=== PATIENT | male | born 1940 | race Caucasian/White ===

== ENCOUNTER 2017-11-15 11:17 | Inpatient (IN) | payer MEDICARE, OTHER ==
[~2017-11-15] VITALS: Ht 165.1 cm; Wt 88.6 kg
[~2017-11-15 11:17] MED LIST: FLO0.4C PO; LISI-643 PO; OMEG1CAP54 PO; RIVA20TA PO; SITA1TAB10 PO
[2017-11-15 12:06] LABS: BASOPHILS % (AUTO) 0.3 % (0-1); EOSINOPHILS # (AUTO) 0.2 X10'3 (0-0.9); EOSINOPHILS % (AUTO) 1.7 % (0-6); HEMATOCRIT 38.5 % (42.0-52.0); HEMOGLOBIN 12.7 g/dl (14.0-17.9); LYMPHOCYTES # (AUTO) 1.7 X10'3 (1.1-4.8); LYMPHOCYTES % (AUTO) 16.6 % (21-51); MEAN CORPUSCULAR HEMOGLOBIN 30.7 PG (27.0-31.0); MEAN CORPUSCULAR VOLUME 93.1 FL (78-98); MONOCYTES # (AUTO) 0.6 X10'3 (0-0.9); MONOCYTES % (AUTO) 6.1 % (2-12); NEUTROPHILS # (AUTO) 7.6 X10'3 (1.8-7.7); NEUTROPHILS % (AUTO) 75.3 % (42-75); PLATELET COUNT 195 X10'3 (140-440); RED BLOOD COUNT 4.14 X10'6 (4.70-6.10); RED CELL DISTRIBUTION WIDTH 14.8 % (11.5-14.5); WHITE BLOOD COUNT 10.1 X10'3 (4.5-11.0)
[2017-11-15 12:15] LABS: INR 1.1 INR; PARTIAL THROMBOPLASTIN TIME 23 SECONDS (22-32)
[2017-11-15 12:23] LABS: ALANINE AMINOTRANSFERASE 38 U/L (12-78); ALBUMIN 3.8 G/DL (3.4-5.0); ALBUMIN/GLOBULIN RATIO 1.1 (1.1-1.5); ALKALINE PHOSPHATASE 40 IU/L (46-116); ANION GAP 11 (8-16); ASPARTATE AMINO TRANSFERASE 28 U/L (10-37); BILIRUBIN,TOTAL 0.5 MG/DL (0.1-1.0); BLOOD UREA NITROGEN 33 MG/DL (7-18); BUN/CREATININE RATIO 20.2 (5.4-32.0); CALCIUM 9.9 MG/DL (8.5-10.1); CHLORIDE 104 MMOL/L (99-107); CREATININE 1.63 MG/DL (0.60-1.10); GLUCOSE 159 MG/DL (70-104); POTASSIUM 4.3 MMOL/L (3.5-5.1); SODIUM 138 MMOL/L (135-145); TOTAL CARBON DIOXIDE 23.5 MMOL/L (24-32); TOTAL PROTEIN 7.2 G/DL (6.4-8.2); eGFR 41 ML/MIN
[2017-11-15 14:02] LABS: CLARITY,URINE CLEAR (Clear); COLOR,URINE YELLOW (Yellow); GLUCOSE, URINE NEGATIVE (Neg); KETONES,URINE NEGATIVE (Neg); LEUKOCYTE ESTERASE ,URINE NEGATIVE (Neg); NITRITES, URINE NEGATIVE (Neg); OCCULT BLOOD,URINE TRACE-INTACT (Neg); PH,URINE 5.5 (4.8-8.0); PROTEIN,URINE 100 mg/dl (Neg); UA COLLECTION TYPE URINAL; UROBILINOGEN,URINE 0.2 E.U/dL (0.2-1.0)
[2017-11-15 14:12] LABS: BACTERIA,URINE FEW /HPF (Neg); MUCUS STRANDS FEW /LPF (Neg); RBC,URINE 0-2 /HPF (0-2); SQUAMOUS EPITHELIAL CELL,UR FEW /LPF (FEW); WBC,URINE 0-4 /HPF (0-4)
[2017-11-15] MEDS ORDERED: glucagon, human recombinant 1mg kit SUBCUT PRN (15:10)
[2017-11-15] MEDS ORDERED: dextrose ORAL solution 15 GM/59 ML bottle PO PRN ×2 (15:10)
[2017-11-15] MEDS ORDERED: insulin Lispro (HumaLOG) vial - multi-dose SQ SCH (15:10)
[2017-11-15] MEDS ORDERED: potassium Cl 20 mEq SR tablet PO PRN ×2 (15:10)
[2017-11-15] MEDS ORDERED: dextrose 50%-water 50ml dispensing syringe IV PRN ×2 (15:10)
[2017-11-15] MEDS ORDERED: magnesium 4gm in 100ml NS 100 ML IV PRN (15:10)
[2017-11-15] MEDS ORDERED: potassium Cl 40MEQ/NS 500ml 500 ML IV PRN ×2 (15:10)
[2017-11-15] MEDS ORDERED: magnesium 1gm/100ml D5W IVPB 100 ML IV PRN (15:10)
[2017-11-15] MEDS ORDERED: magnesium Cl slow-release 64mg tablet PO PRN (15:10)
[2017-11-15] MEDS ORDERED: MESSAGE TO PHARMACY PO ONE (15:10)
[2017-11-15] MEDS ORDERED: ATOR10TA70 PO (15:45)
[2017-11-15] MEDS ORDERED: DONE-46 PO (15:45)
[2017-11-15] MEDS ORDERED: LISI-604 PO (15:45)
[2017-11-15] MEDS ORDERED: ALLO300T8 PO (15:45)
[2017-11-15] MEDS ORDERED: LATA2.5D2 OP (15:45)
[2017-11-15] MEDS ORDERED: SITA1TAB6 PO (15:45)
[2017-11-15] MEDS ORDERED: FENO134C PO (15:45)
[2017-11-15] MEDS ORDERED: TAMS0.4C32 PO (15:45)
[2017-11-15 15:48] LABS: HEMOGLOBIN A1C 6.9 % (4.5-6.2)
[2017-11-15] MEDS ORDERED: metFORMIN 500mg tablet PO SCH (17:30)
[2017-11-15 17:44] VITALS: BP 146/70
[2017-11-15 20:00] VITALS: BP_SYST 144; BP_SYST 150; BP_SYST 155; BP_DIAS 65; BP_DIAS 70; BP_DIAS 74
[2017-11-15] MEDS: insulin glargine (Lantus) pen - multi-dose SQ SCH (21:00)
[2017-11-15] MEDS: donepezil 5mg tablet PO SCH (22:35)
[2017-11-15] MEDS: latanoprost 0.005% 2.5ml ophthalmic drops EACHEYE SCH (22:37)
[2017-11-16] VITALS: BP 142/63
[2017-11-16 05:13] LABS: BASOPHILS % (AUTO) 0.6 % (0-1); EOSINOPHILS # (AUTO) 0.3 X10'3 (0-0.9); EOSINOPHILS % (AUTO) 4.3 % (0-6); HEMATOCRIT 35.9 % (42.0-52.0); LYMPHOCYTES # (AUTO) 2.5 X10'3 (1.1-4.8); LYMPHOCYTES % (AUTO) 31.8 % (21-51); MEAN CORPUSCULAR HEMOGLOBIN 31.1 PG (27.0-31.0); MEAN CORPUSCULAR HGB CONC 33.5 % (33.0-36.5); MEAN CORPUSCULAR VOLUME 93.1 FL (78-98); MEAN PLATELET VOLUME 9.6 FL (7.4-10.4); MONOCYTES # (AUTO) 0.7 X10'3 (0-0.9); MONOCYTES % (AUTO) 8.5 % (2-12); NEUTROPHILS # (AUTO) 4.3 X10'3 (1.8-7.7); NEUTROPHILS % (AUTO) 54.8 % (42-75); PLATELET COUNT 192 X10'3 (140-440); RED BLOOD COUNT 3.85 X10'6 (4.70-6.10); RED CELL DISTRIBUTION WIDTH 15.2 % (11.5-14.5); WHITE BLOOD COUNT 7.8 X10'3 (4.5-11.0)
[2017-11-16 05:41] LABS: ALBUMIN 3.3 G/DL (3.4-5.0); ANION GAP 7 (8-16); BLOOD UREA NITROGEN 32 MG/DL (7-18); BUN/CREATININE RATIO 22.4 (5.4-32.0); CALCIUM 9.3 MG/DL (8.5-10.1); CHLORIDE 106 MMOL/L (99-107); CREATININE 1.43 MG/DL (0.60-1.10); GLUCOSE 123 MG/DL (70-104); MAGNESIUM 1.9 MG/DL (1.5-2.4); POTASSIUM 3.8 MMOL/L (3.5-5.1); SODIUM 137 MMOL/L (135-145); TOTAL CARBON DIOXIDE 24.5 MMOL/L (24-32); eGFR 48 ML/MIN
[2017-11-16 07:21] VITALS: BP 149/68
[2017-11-16 07:22] VITALS: BP_SYST 149; BP_SYST 153; BP_SYST 174; BP_DIAS 68; BP_DIAS 74; BP_DIAS 78
[2017-11-16] MEDS: allopurinol 300 MG tablet PO SCH (07:52)
[2017-11-16] MEDS: fenofibrate 145mg tablet PO SCH (07:52)
[2017-11-16] MEDS: atorvastatin 10mg tablet PO SCH (07:52)
[2017-11-16] MEDS: K and/or MAG REPLACEMENT MC SCH (08:00)
[2017-11-16 12:04] VITALS: BP 148/65
[2017-11-16 18:30] VITALS: BP_SYST 145; BP_SYST 149; BP_SYST 165; BP_DIAS 66; BP_DIAS 72; BP_DIAS 74
[2017-11-16] MEDS: insulin glargine (Lantus) pen - multi-dose SQ SCH (21:00)
[2017-11-16] MEDS: latanoprost 0.005% 2.5ml ophthalmic drops EACHEYE SCH (22:02)
[2017-11-16] MEDS: donepezil 5mg tablet PO SCH (22:03)
[2017-11-17] VITALS: BP 166/74
[2017-11-17 05:48] LABS: BASOPHILS % (AUTO) 0.6 % (0-1); EOSINOPHILS # (AUTO) 0.5 X10'3 (0-0.9); EOSINOPHILS % (AUTO) 6.7 % (0-6); HEMATOCRIT 42.2 % (42.0-52.0); HEMOGLOBIN 14.1 g/dl (14.0-17.9); LYMPHOCYTES # (AUTO) 2.7 X10'3 (1.1-4.8); LYMPHOCYTES % (AUTO) 32.9 % (21-51); MEAN CORPUSCULAR HGB CONC 33.4 % (33.0-36.5); MEAN CORPUSCULAR VOLUME 92.8 FL (78-98); MEAN PLATELET VOLUME 9.6 FL (7.4-10.4); MONOCYTES # (AUTO) 0.7 X10'3 (0-0.9); MONOCYTES % (AUTO) 8.6 % (2-12); NEUTROPHILS # (AUTO) 4.2 X10'3 (1.8-7.7); NEUTROPHILS % (AUTO) 51.2 % (42-75); PLATELET COUNT 224 X10'3 (140-440); RED BLOOD COUNT 4.54 X10'6 (4.70-6.10); RED CELL DISTRIBUTION WIDTH 14.9 % (11.5-14.5); WHITE BLOOD COUNT 8.1 X10'3 (4.5-11.0)
[2017-11-17 06:38] LABS: ALBUMIN 3.9 G/DL (3.4-5.0); BLOOD UREA NITROGEN 30 MG/DL (7-18); BUN/CREATININE RATIO 20.7 (5.4-32.0); CALCIUM 9.7 MG/DL (8.5-10.1); CREATININE 1.45 MG/DL (0.60-1.10); GLUCOSE 133 MG/DL (70-104); MAGNESIUM 2.1 MG/DL (1.5-2.4); POTASSIUM 3.9 MMOL/L (3.5-5.1); eGFR 47 ML/MIN
[2017-11-17 06:47] LABS: ANION GAP 10 (8-16); CHLORIDE 104 MMOL/L (99-107); SODIUM 140 MMOL/L (135-145)
[2017-11-17 08:00] VITALS: BP_SYST 162; BP_SYST 172; BP_SYST 196; BP_DIAS 82; BP_DIAS 84; BP_DIAS 89
[2017-11-17] MEDS: K and/or MAG REPLACEMENT MC SCH (08:00)
[2017-11-17] MEDS: fenofibrate 145mg tablet PO SCH (09:20)
[2017-11-17] MEDS: allopurinol 300 MG tablet PO SCH (09:20)
[2017-11-17] MEDS: atorvastatin 10mg tablet PO SCH (09:20)
== END 2017-11-17 12:08 | disposition home or self-care (01) | DRG 312 ==
LOC: ER 11:18 → U 15:17 → ED HOLD 15:43 → SUR 3N 17:32
PROVIDERS: ADMIT Internal Medicine; ATTEND Internal Medicine
DX: I95.2 Hypotension due to drugs (principal); N18.3 Chronic kidney disease, stage 3 (moderate); E11.22 Type 2 diabetes mellitus with diabetic chronic kidney disease; E11.65 Type 2 diabetes mellitus with hyperglycemia; E78.5 Hyperlipidemia, unspecified; F03.90 Unspecified dementia, unspecified severity, without behavioral disturbance, psychotic disturbance, mood disturbance, and anxiety; M10.9 Gout, unspecified; M51.36 Other intervertebral disc degeneration, lumbar region; G89.29 Other chronic pain; M54.5 Low back pain; Z96.653 Presence of artificial knee joint, bilateral; I12.9 Hypertensive chronic kidney disease with stage 1 through stage 4 chronic kidney disease, or unspecified chronic kidney disease; N40.0 Benign prostatic hyperplasia without lower urinary tract symptoms; Z60.2 Problems related to living alone; T44.6X5A Adverse effect of alpha-adrenoreceptor antagonists, initial encounter; Z79.899 Other long term (current) drug therapy; Z86.711 Personal history of pulmonary embolism
CPT/HCPCS: 36415; 70450; 71045; 72110; 80048; 80053; 81001; 82948; 83036; 83735; 84484; 85025; 85610; 85730; 87070; 93005; 93306; 93880; 99285; J1815

== ENCOUNTER 2018-04-28 16:45 | Inpatient (IN) | payer MEDICARE, OTHER ==
[~2018-04-28] VITALS: Ht 165.1 cm; Wt 90.0 kg
[~2018-04-28 16:45] MED LIST changes: +ALLO300T8 PO; +ATOR10TA70 PO; +DONE-46 PO; +FENO134C PO; -FLO0.4C PO; +LATA2.5D2 OP; +LISI-604 PO; -LISI-643 PO; -OMEG1CAP54 PO; -RIVA20TA PO; -SITA1TAB10 PO; +SITA1TAB6 PO
--- NOTE | 2018-04-28 16:54 | NUR ---
HORTENCIA JOYCEA: [phone]
[2018-04-28 17:00] LABS: BASOPHILS # (AUTO) 0.1 X10'3 (0-0.2); BASOPHILS % (AUTO) 0.8 % (0-1); EOSINOPHILS # (AUTO) 0.4 X10'3 (0-0.9); EOSINOPHILS % (AUTO) 6.2 % (0-6); HEMATOCRIT 36.4 % (42.0-52.0); HEMOGLOBIN 12.2 g/dl (14.0-17.9); LYMPHOCYTES # (AUTO) 2.5 X10'3 (1.1-4.8); LYMPHOCYTES % (AUTO) 34.7 % (21-51); MEAN CORPUSCULAR HEMOGLOBIN 30.9 PG (27.0-31.0); MEAN CORPUSCULAR HGB CONC 33.6 g/dL (33.0-36.5); MEAN PLATELET VOLUME 9.4 FL (7.4-10.4); MONOCYTES # (AUTO) 0.6 X10'3 (0-0.9); MONOCYTES % (AUTO) 8.8 % (2-12); NEUTROPHILS # (AUTO) 3.5 X10'3 (1.8-7.7); NEUTROPHILS % (AUTO) 49.5 % (42-75); PLATELET COUNT 199 X10'3 (140-440); RED BLOOD COUNT 3.95 X10'6 (4.70-6.10); RED CELL DISTRIBUTION WIDTH 14.6 % (11.5-14.5); WHITE BLOOD COUNT 7.2 X10'3 (4.5-11.0)
[2018-04-28 17:15] LABS: PARTIAL THROMBOPLASTIN TIME 26 SECONDS (22-32); PROTHROMBIN TIME 10.4 SECONDS (9.0-12.0)
[2018-04-28 17:23] LABS: ALANINE AMINOTRANSFERASE 36 U/L (12-78); ALBUMIN 3.4 G/DL (3.4-5.0); ALBUMIN/GLOBULIN RATIO 1.1 (1.1-1.5); ALKALINE PHOSPHATASE 50 IU/L (46-116); ANION GAP 11 (8-16); ASPARTATE AMINO TRANSFERASE 26 U/L (10-37); BILIRUBIN,TOTAL 0.4 MG/DL (0.1-1.0); BLOOD UREA NITROGEN 27 MG/DL (7-18); BUN/CREATININE RATIO 17.5 (5.4-32.0); CHLORIDE 107 MMOL/L (99-107); CREATININE 1.54 MG/DL (0.60-1.10); GLUCOSE 122 MG/DL (70-104); POTASSIUM 4.3 MMOL/L (3.5-5.1); SODIUM 142 MMOL/L (135-145); TOTAL CARBON DIOXIDE 24.5 MMOL/L (24-32); TOTAL PROTEIN 6.5 G/DL (6.4-8.2); TROPONIN I < 0.04 NG/ML (0.0-0.05); eGFR 44 ML/MIN
[2018-04-28] MEDS ORDERED: FLO0.4C PO (17:40)
[2018-04-28] MEDS ORDERED: MESSAGE TO PHARMACY PO ONE (19:20)
[2018-04-28] MEDS ORDERED: dextrose ORAL solution 15 GM/59 ML bottle PO PRN ×2 (19:20)
[2018-04-28] MEDS ORDERED: HYDROcodone/acetaminophen 5mg/325mg tablet PO PRN (19:20)
[2018-04-28] MEDS ORDERED: glucagon, human recombinant 1mg kit SUBCUT PRN (19:20)
[2018-04-28] MEDS ORDERED: magnesium Cl slow-release 64mg tablet PO PRN (19:20)
[2018-04-28] MEDS ORDERED: insulin Lispro (HumaLOG) vial - multi-dose SQ SCH (19:20)
[2018-04-28] MEDS ORDERED: magnesium 2GM in 50ml NS 50 ML IV PRN (19:20)
[2018-04-28] MEDS ORDERED: acetaminophen 325mg tablet PO PRN (19:20)
[2018-04-28] MEDS ORDERED: ondansetron/PF 4mg/2ml inj IV PRN (19:20)
[2018-04-28] MEDS ORDERED: magnesium hydroxide 30ml (MOM) UD suspension PO PRN (19:20)
[2018-04-28] MEDS ORDERED: dextrose 50%-water 50ml dispensing syringe IV PRN ×2 (19:20)
[2018-04-28] MEDS ORDERED: potassium Cl 20 mEq SR tablet PO PRN ×2 (19:20)
[2018-04-28] MEDS ORDERED: potassium Cl 40MEQ/NS 500ml 500 ML IV PRN ×2 (19:20)
[2018-04-28] MEDS ORDERED: magnesium 4gm in 100ml NS 100 ML IV PRN (19:20)
[2018-04-28] MEDS ORDERED: mag hydrox/Alum hydrox/simeth 30ml oral suspension PO PRN (19:20)
[2018-04-28 19:45] LABS: HEMOGLOBIN A1C 6.7 % (4.5-6.2)
[2018-04-28] MEDS ORDERED: aspirin 81mg tab.chew PO ONE (19:55)
--- NOTE | 2018-04-28 20:23 | NUR ---
I have received report from BENJAMIN NUÑEZ and had the opportunity to ask questions and assume patient care.
[2018-04-28 20:38] VITALS: BP_SYST 174; BP_SYST 185; BP_DIAS 84; BP_DIAS 91
[2018-04-28] MEDS ORDERED: insulin glargine (Lantus) pen - multi-dose SQ SCH (21:00)
[2018-04-28] MEDS: atorvastatin 20mg tablet PO SCH (21:28)
[2018-04-28 22:00] VITALS: BP 189/83
[2018-04-29 02:00] VITALS: BP 140/70
[2018-04-29 06:00] VITALS: BP 150/76
--- NOTE | 2018-04-29 06:21 | NUR ---
received report from jeb anderson rn
--- NOTE | 2018-04-29 06:22 | NUR ---
Problems reprioritized. Patient report given, questions answered & plan of care reviewed with BENJAMIN Rogers.
[2018-04-29 06:41] LABS: BASOPHILS % (AUTO) 0.4 % (0-1); EOSINOPHILS # (AUTO) 0.4 X10'3 (0-0.9); EOSINOPHILS % (AUTO) 5.4 % (0-6); HEMATOCRIT 35.7 % (42.0-52.0); HEMOGLOBIN 12.2 g/dl (14.0-17.9); LYMPHOCYTES # (AUTO) 2.3 X10'3 (1.1-4.8); LYMPHOCYTES % (AUTO) 32.2 % (21-51); MEAN CORPUSCULAR HEMOGLOBIN 31.1 PG (27.0-31.0); MEAN CORPUSCULAR VOLUME 91.3 FL (78-98); MEAN PLATELET VOLUME 9.3 FL (7.4-10.4); MONOCYTES # (AUTO) 0.7 X10'3 (0-0.9); MONOCYTES % (AUTO) 9.7 % (2-12); NEUTROPHILS # (AUTO) 3.8 X10'3 (1.8-7.7); NEUTROPHILS % (AUTO) 52.3 % (42-75); PLATELET COUNT 190 X10'3 (140-440); RED BLOOD COUNT 3.91 X10'6 (4.70-6.10); RED CELL DISTRIBUTION WIDTH 14.5 % (11.5-14.5); WHITE BLOOD COUNT 7.3 X10'3 (4.5-11.0)
[2018-04-29 06:48] LABS: ALANINE AMINOTRANSFERASE 34 U/L (12-78); ALBUMIN 3.2 G/DL (3.4-5.0); ALKALINE PHOSPHATASE 45 IU/L (46-116); ANION GAP 11 (8-16); ASPARTATE AMINO TRANSFERASE 25 U/L (10-37); BILIRUBIN,TOTAL 0.4 MG/DL (0.1-1.0); BLOOD UREA NITROGEN 25 MG/DL (7-18); BUN/CREATININE RATIO 18.8 (5.4-32.0); CALCIUM 8.9 MG/DL (8.5-10.1); CHLORIDE 107 MMOL/L (99-107); CHOLESTEROL 135 MG/DL (0-200); CREATININE 1.33 MG/DL (0.60-1.10); GLUCOSE 118 MG/DL (70-104); HDL CHOLESTEROL 34 MG/DL (35-60); LDL CHOLESTEROL 88 MG/DL (50-100); MAGNESIUM 1.8 MG/DL (1.5-2.4); SODIUM 141 MMOL/L (135-145); TOTAL CARBON DIOXIDE 23.1 MMOL/L (24-32); TOTAL PROTEIN 6.3 G/DL (6.4-8.2); TRIGLYCERIDES 129 MG/DL (20-135); eGFR 52 ML/MIN
[2018-04-29] MEDS: atorvastatin 20mg tablet PO SCH (07:37)
[2018-04-29 08:00] VITALS: BP 135/75
[2018-04-29] MEDS ORDERED: enoxaparin 40mg/0.4ml syringe SUBCUT SCH (08:00)
[2018-04-29] MEDS ORDERED: K and/or MAG REPLACEMENT MC SCH (08:00)
[2018-04-29 12:00] VITALS: BP 140/71
[2018-04-29] MEDS ORDERED: ROSU20TA PO (13:05)
[2018-04-29] MEDS ORDERED: ASPI-611 PO (13:05)
--- NOTE | 2018-04-29 14:12 | NUR ---
pt d/c with instructions, understanding of instructions, and with all belongings in wheelchair accompanied by daughter to private vehicle to go home and f/u w/pcp
== END 2018-04-29 14:15 | disposition home health service (06) | DRG 65 ==
LOC: ER 16:46 → ED HOLD 19:20 → ORTHO 4S 20:25
PROVIDERS: ADMIT Internal Medicine; ATTEND Internal Medicine
DX: I63.9 Cerebral infarction, unspecified (principal); N17.9 Acute kidney failure, unspecified; R29.810 Facial weakness; E11.22 Type 2 diabetes mellitus with diabetic chronic kidney disease; E78.00 Pure hypercholesterolemia, unspecified; E78.5 Hyperlipidemia, unspecified; G47.30 Sleep apnea, unspecified; I12.9 Hypertensive chronic kidney disease with stage 1 through stage 4 chronic kidney disease, or unspecified chronic kidney disease; Z60.2 Problems related to living alone; K21.9 Gastro-esophageal reflux disease without esophagitis; M10.9 Gout, unspecified; N18.3 Chronic kidney disease, stage 3 (moderate); N40.0 Benign prostatic hyperplasia without lower urinary tract symptoms; Z86.711 Personal history of pulmonary embolism; Z79.899 Other long term (current) drug therapy; Z87.891 Personal history of nicotine dependence; Z79.82 Long term (current) use of aspirin
CPT/HCPCS: 36415; 70450; 70544; 70551; 71045; 80053; 80061; 82948; 83036; 83735; 84484; 85025; 85610; 85730; 87070; 93005; 93308; 93880; 97116; 97162; 97530; 99285; G0378; J1650; J1815